=== PATIENT | male | born 1935 | race Caucasian/White ===

== ENCOUNTER → 2025-05-14 | Outpatient (REF) | payer MEDICARE, OTHER ==
[~2025-05-14] MED LIST: AMIT25TA2; ASPI81TA3; ATEN25TA; CELE1CAP4; FLAG500T; HYDR25TA6; K-TA10TA; LEVA500T; OMEP20TA7; PAIN325T; PAXI40TA; PERC5TAB8; SIMV10TA2; SOMA350T
[2025-05-14 08:38] LABS: BASO # 0.0 10^3/uL (0.0-0.2); BASO % 0.2 % (0.0-1.0); EOS # 0.0 10^3/uL (0.0-0.5); EOS % 0.0 % (0.0-3.0); LYMPH # 0.7 10^3/uL (1.5-5.0); LYMPH % 6.6 % (24.0-44.0); MONO # 0.9 10^3/uL (0.0-0.8); MONO % 7.9 % (2.0-8.0); NEUTROPHILS # 9.1 10^3/uL (1.5-8.5); NEUTROPHILS % 84.6 % (36.0-66.0); PLATELET COUNT, AUTOMATED 169 10^3/uL (150-450)
== END ==
LOC: SKLAB2 07:10
PROVIDERS: ATTEND Family Medicine
DX: R19.7 Diarrhea, unspecified (principal)